=== PATIENT | female | born 1990 | race Native Hawaiian/Other Pacific Islander ===

== ENCOUNTER 2018-11-13 13:04 | Emergency (ER) | payer OTHER ==
[2018-11-13 13:28] VITALS: TEMP 98.2
[2018-11-13] MEDS ORDERED: Sodium Chloride 0.9% 1,000 ML IV ONE (13:38)
[2018-11-13] MEDS ORDERED: Sodium Chloride 0.9% 1,000 ML ONE (14:12)
[2018-11-13 14:33] LABS: BASO % 0.4 % (0.0-2.0); EOS # 0.1 K/uL (0.0-0.7); HEMOGLOBIN 13.3 g/dL (11.0-16.0); LYMPH # 1.1 K/uL (1.0-4.3); LYMPH % 15.1 % (20.0-40.0); MEAN CELL VOLUME 91.2 fL (81.0-99.0); MEAN CORPUSCULAR HEMOGLOBIN 30.4 pg (27.0-31.0); MEAN CORPUSCULAR HGB CONC 33.3 g/dL (33.0-37.0); MEAN PLATELET VOLUME 9.4 fL (7.2-11.7); MONO # 0.5 K/uL (0.0-0.8); MONO % 7.2 % (0.0-10.0); NEUT # 5.4 K/uL (1.8-7.0); NEUT % 75.3 % (50.0-75.0); RBC 4.4 Mil/uL (3.80-5.20); WHITE BLOOD COUNT 7.2 K/uL (4.8-10.8)
[2018-11-13 14:37] LABS: HCG,QUALITATIVE URINE NEGATIVE (NEGATIVE)
[2018-11-13 14:38] LABS: SQUAMOUS EPITHIAL < 1 /hpf (0-5); URINE BACTERIA RARE (<OCC); URINE BILIRUBIN NEGATIVE (NEGATIVE); URINE BLOOD 2+ (NEGATIVE); URINE CLARITY Clear (Clear); URINE COLOR Yellow (YELLOW); URINE GLUCOSE (UA) NORMAL (Normal); URINE LEUKOCYTE ESTERASE NEG Leu/uL (Negative); URINE PROTEIN NEGATIVE (NEGATIVE); URINE UROBILINOGEN NORMAL mg/dL (0.2-1.0)
[2018-11-13 14:47] LABS: ALB/GLOB RATIO 1.6 (1.0-2.1); ALBUMIN 4.6 g/dL (3.5-5.0); ALT/SGPT 17 U/L (9-52); AST/SGOT 20 U/L (14-36); BLOOD UREA NITROGEN 9 mg/dL (7-17); CALCIUM 8.7 mg/dl (8.6-10.4); GFR NON-AFRICAN AMERICAN > 60; LIPASE 70 U/L (23-300)
--- NOTE | 2018-11-13 15:20 | C.PDOC ---
History Of Present Illness 28 year old female presents to the ED for evaluation of nausea, vomiting and diarrhea which began last night. Patient also reports associated left upper quadrant abdominal pain, which she describes as a burning sensation. She denies fever, chills, cough, chest pain, dysuria, hematuria, vaginal bleeding/discharge. Time Seen by Provider: 11/13/18 13:16 Chief Complaint (Nursing): Abdominal Pain History Per: Patient History/Exam Limitations: no limitations Onset/Duration Of Symptoms: Hrs Current Symptoms Are (Timing): Still Present Severity: Mild Location Of Pain/Discomfort: LUQ Radiation Of Pain To:: None Quality Of Discomfort: Burning, "Pain" Associated Symptoms: Nausea, Vomiting, Diarrhea. denies: Fever, Chills, Urinary Symptoms Additional History Per: Patient Abnormal Vaginal Bleeding: No Past Medical History Reviewed: Historical Data, Nursing Documentation, Vital Signs Vital Signs: Last Vital Signs Temp 98.2 F 11/13/18 13:24 Pulse 90 11/13/18 13:24 Resp 16 11/13/18 13:24 BP 124/85 11/13/18 13:24 Pulse Ox 99 11/13/18 13:24 - Medical History PMH: Asthma Surgical History: No Surg Hx Family History: States: No Known Family Hx - Social History Hx Alcohol Use: No Hx Substance Use: No - Immunization History Hx Tetanus Toxoid Vaccination: No Hx Influenza Vaccination: No Hx Pneumococcal Vaccination: No Review Of Systems Constitutional: Negative for: Fever, Chills Cardiovascular: Negative for: Chest Pain Respiratory: Negative for: Cough Gastrointestinal: Positive for: Nausea, Vomiting, Abdominal Pain (left upper quadrant ), Diarrhea Genitourinary: Negative for: Dysuria, Hematuria, Vaginal Discharge, Vaginal Bleeding Skin: Negative for: Rash Physical Exam - Physical Exam Appears: Well, Non-toxic, No Acute Distress, Other (mildly uncomfortable ) Skin: Normal Color, Warm, Dry Head: Normacephalic Eye(s): bilateral: Normal Inspection Oral Mucosa: Moist Neck: Supple Cardiovascular: Rhythm Regular, No Murmur Respiratory: Normal Breath Sounds, No Rales, No Rhonchi, No Wheezing Gastrointestinal/Abdominal: Bowel Sounds, Soft, Tenderness (mild TTP at epigastric and left upper quadrant areas), No Guarding, No Rebound, Other ((-) Marquez's, (-) McBurney's) Back: No CVA Tenderness Extremity: Normal ROM Neurological/Psych: Oriented x3 ED Course And Treatment - Laboratory Results Result Diagrams: 11/13/18 14:28 11/13/18 14:28 Lab Results: Total Bilirubin 1.2 mg/dL (0.2-1.3) 11/13/18 14:28 AST 20 U/L (14-36) 11/13/18 14:28 ALT 17 U/L (9-52) 11/13/18 14:28 Alkaline Phosphatase 56 U/L (38-126) 11/13/18 14:28 Total Protein 7.5 g/dL (6.3-8.3) 11/13/18 14:28 Albumin 4.6 g/dL (3.5-5.0) 11/13/18 14:28 Globulin 2.9 gm/dL (2.2-3.9) 11/13/18 14:28 Albumin/Globulin Ratio 1.6 (1.0-2.1) 11/13/18 14:28 Lipase 70 U/L (23-300) 11/13/18 14:28 Urine Color Yellow (YELLOW) 11/13/18 14:28 Urine Clarity Clear (Clear) 11/13/18 14:28 Urine pH 5.0 (5.0-8.0) 11/13/18 14:28 Ur Specific [place] 1.009 (1.003-1.030) 11/13/18 14:28 Urine Protein Negative mg/dL (NEGATIVE) 11/13/18 14:28 Urine Glucose (UA) Normal mg/dL (Normal) 11/13/18 14:28 Urine Ketones Negative mg/dL (NEGATIVE) 11/13/18 14:28 Urine Blood 2+ (NEGATIVE) H 11/13/18 14:28 Urine Nitrate Negative (NEGATIVE) 11/13/18 14:28 Urine Bilirubin Negative (NEGATIVE) 11/13/18 14:28 Urine Urobilinogen Normal mg/dL (0.2-1.0) 11/13/18 14:28 Ur Leukocyte Esterase Neg Andrea/uL (Negative) 11/13/18 14:28 Urine WBC (Auto) 1 /hpf (0-5) 11/13/18 14:28 Urine RBC (Auto) 2 /hpf (0-3) 11/13/18 14:28 Ur Squamous Epith Cells < 1 /hpf (0-5) 11/13/18 14:28 Urine Bacteria Rare (<OCC) 11/13/18 14:28 Urine HCG, Qual Negative (NEGATIVE) 11/13/18 14:28 Urine HCG, Qual Negative (NEGATIVE) 11/13/18 14:28 O2 Sat by Pulse Oximetry: 99 (on RA) Pulse Ox Interpretation: Normal Progress Note: Bloodwork, UA ordered and reviewed. Patient given IV NS bolus, IV Protonix, IV Zofran, Bentyl PO. Reevaluation Time: 15:35 Reassessment Condition: Improved (Patient reassessed, is resting comfortably and states she feels better. On exam, abdomen is soft and nontender. Patient has no dysuria/flank pain, do not suspect kidney stone. Symptoms likely due to viral gastroenteritis. Rxs for tylenol, zofran and bentyl given. Patient instructed to drink plenty of clear fluids and to follow up with PMD/clinic in 1-2 days. She understands she should return to ED if symptoms worsen.) Disposition Counseled Patient/Family Regarding: Diagnosis, Need For Followup, Rx Given - Disposition Referrals: Demetrius Bonner MD [Staff Provider] - Disposition: HOME/ ROUTINE Disposition Time: 15:35 Condition: STABLE Additional Instructions: FOLLOW UP WITH YOUR DOCTOR IN 1-2 DAYS DRINK PLENTY OF FLUIDS USE MEDICATIONS NEEDED RETURN TO ER IF SYMPTOMS WORSEN Prescriptions: Acetaminophen [Tylenol 325mg tab] 650 mg PO Q6 PRN #30 tab PRN Reason: pain/fever Dicyclomine [Bentyl] 20 mg PO Q6 PRN #12 tab PRN Reason: ABDOMINAL CRAMPING Ondansetron ODT [Zofran ODT] 1 odt PO BID PRN #15 odt PRN Reason: Nausea/Vomiting Instructions: Viral Gastroenteritis, Adult (DC) Forms: [employer] (Nepali), Work Excuse Print Language: BENGALI - Clinical Impression Clinical Impression: Abdominal pain, Nausea, Vomiting, Diarrhea, Gastroenteritis - Scribe Statement The provider has reviewed the documentation as recorded by the Scribe (Cecily emmanuel) Provider Attestation: All medical record entries made by the Scribe were at my direction and personally dictated by me. I have reviewed the chart and agree that the record accurately reflects my personal performance of the history, physical exam, medical decision making, and the department course for this patient. I have also personally directed, reviewed, and agree with the discharge instructions and disposition.
[2018-11-13 15:45] VITALS: BP 112/71; PULSE 72; RESP 18
[2018-11-14 13:33] VITALS: O2SAT 99
== END 2018-11-13 15:56 | disposition home or self-care (01) ==
LOC: C.ER 13:04
DX: K52.9 Noninfective gastroenteritis and colitis, unspecified (principal); R11.2 Nausea with vomiting, unspecified; R10.12 Left upper quadrant pain
CPT/HCPCS: 80053; 81001; 83690; 84703; 85025; 96361; 96374; 96375; 99284; C9113; J2405; J7030